=== PATIENT | male | born 1950 | race Caucasian/White ===

== ENCOUNTER 2024-02-22 10:05 | Observation (INO) ==
--- NOTE | 2024-01-25 10:28 | PAT Medication Instructions ---
Medication Instructions Date of Service January 25, 2024 Home Medications dorzolamide 2 % eye drops 1 drp ophthalmic (eye) BID lisinopril 10 mg tablet 10 mg PO QPM netarsudil 0.02 %-latanoprost 0.005 % eye drops (Rocklatan) 1 drp ophthalmic (eye) HS timolol 0.5 % eye drops 1 drp ophthalmic (eye) BID multivitamin 1 tab PO QAM prednisolone acetate (PF) 1 % eye drops,suspension 1 drp ophthalmic (eye) HS DO NOT take the morning of surgery multivitamin 1 tab PO QAM Take morning of surgery dorzolamide 2 % eye drops 1 drp ophthalmic (eye) BID timolol 0.5 % eye drops 1 drp ophthalmic (eye) BID Take evening before surgery dorzolamide 2 % eye drops 1 drp ophthalmic (eye) BID lisinopril 10 mg tablet 10 mg PO QPM netarsudil 0.02 %-latanoprost 0.005 % eye drops (Rocklatan) 1 drp ophthalmic (eye) HS timolol 0.5 % eye drops 1 drp ophthalmic (eye) BID prednisolone acetate (PF) 1 % eye drops,suspension 1 drp ophthalmic (eye) HS NOTHING TO EAT OR DRINK AFTER MIDNIGHT Other Notes If you have any questions please call us at [phone] or [phone] or [phone] or [phone]
--- NOTE | 2024-01-31 11:04 | Anesthesiology Consultation ---
Date of Service January 31, 2024 Assessment & Plan (1) Encounter for pre-operative examination: Chart Review Chart Review: Acceptable Risk for Surgery and Patient seen in Pre Admission Testing - Please send preop testing to PCP for continuity of care per patient request (Dr. Timothy Lutz [facility]) - Patient is NOT an ideal OPJ candidate Per PAT appt on 01/25/24, no recent illness/disease exposures, illness related sy mptoms, or recent illness/disease positive tests. Will leave to surgeon's discretion if preop Covid testing needed Teaching & Discussion Pre-Anesthesia Teaching/Discussion Notes: Instructed NPO after midnight before surgery,except medications with 15 cc of water. Medication instructions provided according to the PAT guidelines. History Surgery Operation Date: 02/22/24 12:30 Proposed Procedures p Right Total Knee Arthroplasty - Saji Kuo MD Height/Weight Height: 5 ft 10 in Weight: 85.5 kg Allergies Allergy/AdvReac Type Severity Reaction Status Date / Time No Known Allergies Allergy Verified 01/25/24 07:51 Medications Home Medications Medication Instructions Recorded Confirmed Last Taken dorzolamide 2 % eye drops 1 drp ophthalmic (eye) BID 01/24/24 01/25/24 Unknown lisinopril 10 mg tablet 10 mg PO QPM 01/24/24 01/25/24 Unknown netarsudil 0.02 %-latanoprost 1 drp ophthalmic (eye) HS 01/24/24 01/25/24 Unknown 0.005 % eye drops (Rocklatan) timolol 0.5 % eye drops 1 drp ophthalmic (eye) BID 01/24/24 01/25/24 Unknown multivitamin 1 tab PO QAM 01/25/24 01/25/24 Unknown prednisolone acetate (PF) 1 % eye 1 drp ophthalmic (eye) HS 01/25/24 01/25/24 Unknown drops,suspension Past Medical History Medical History (Updated 01/31/24 @ 11:02 by Eliza Tompkins PA-C) History of COVID-23 August 2023- no residual symptoms History of Mohs micrographic surgery for skin cancer x4 History of prostate cancer Dx 2011, s/p prostatectomy - no chemo or XRT Hx of basal cell carcinoma face, removed Hypertension Mild - takes blood pressure medication more for eyes (history of corneal transplant) Hypoglycemia History of No problems since the 1970s Right knee DJD Exercise / Class Metabolic Activity II 4-5 Yardwork/Stairs/Walk up hill (one flight of stairs - no chest pain or SOB ) Past Surgical History Surgical History Hx of arthroscopy of left knee x2 Hx of arthroscopy of right knee x2 Hx of arthroscopy of shoulder rt RCT repair Hx of colonoscopy Hx of cornea transplant 2014, bilat eyes, [facility] Hx of foot surgery rt>"major" sx following lawnmower accident Hx of knee surgery rt knee, reconstruction following fall in elevator shaft Hx of prostatectomy 2011, [facility], robotic assisted Past Anesthesia History No Hx of Anesthesia Complications and No Family Hx of Anesthesia Complications History of PONV No Hx of PONV and No Hx of Motion Sickness Social History Smoking Status: Never smoker Do You Dip or Chew Tobacco: No Hx Alcohol Use: No Hx Substance Use: No substance use type: does not use Review of Systems - Hx of mild snoring- no witnessed apnea- no hx of sleep study - Hx of blood transfusion in 1960s due to foot trauma Patient denies chest pain, shortness of breath, dyspnea on exertion, reflux, cough, wheezing, palpitations. No hx of seizures, stroke, [place]. No hx of blood clots Physical Exam Vital Signs VITALS BP 140/82 (manually) P 56 TEMP 97.5 SP02 100% RESP 16 Constitutional no acute distress ENMT Mouth: no TMJ clicking Thyromental Distance: > or= 3.5 Finger Breadths (3.5) Mallampati Class: I Veneers to top front tooth Crowns to the side teeth Neck + limited neck extension Respiratory normal respiratory effort; no respiratory distress Auscultation: lungs clear to auscultation bilaterally and + diminished lung sounds (mildly throughout); no wheezes Cardiovascular Rate/Rhythm: regular rate and regular rhythm Heart Sounds: no murmur Vessels: no carotid bruit Musculoskeletal Spine: no pain with cervical ROM Extremities: extremities normal to inspection Psychiatric Orientation: alert Lab Results Anesthesia Preop Results Results Anesthesia Widget: WBC 7.15 K/ul (4.8-10.8) 01/31/24 Hgb 14.0 g/dl (14.0-18.0) 01/31/24 Hct 40.4 % (42.0-52.0) L 01/31/24 Plt 217 K/uL (130-400) 01/31/24 Na 134 mmol/L (136-145) L 01/31/24 K 4.3 mmol/L (3.5-5.1) 01/31/24 Cl 101 mmol/L (98-107) 01/31/24 CO2 29 mmol/L (21-32) 01/31/24 BUN 17 mg/dl (6-23) 01/31/24 Creat 0.93 mg/dl (0.6-1.4) 01/31/24 Glucose Level 88 mg/dl (70-99(Fasting)) 01/31/24 PT 10.9 Seconds (9.0-12.0) 01/31/24 PTT 28 Seconds (21-31) 01/31/24 INR 1.0 (0.9-1.1) 01/31/24 Blood Type A Positive 01/31/24 Antibody Screen NEGATIVE 01/31/24 Testing Electrocardiogram Date: 01/31/24 Findings: + SB @ (58bpm) Otherwise normal EKG per cardio Chest X-Ray Date: 01/31/24 FINDINGS: PA and lateral chest radiographs are obtained. No prior studies are available for comparison at the time of dictation. The cardiomediastinal silhouette is unremarkable noting atherosclerotic calcification of the thoracic aorta. There is mild bibasilar scarring/atelectasis. The lungs and pleural spaces are otherwise clear. There is no pneumothorax. The skeletal structures are osteopenic. The bony thorax appears intact. Mild degenerative change is seen in the thoracic spine. Arthritic change is noted in the right shoulder. IMPRESSION: No active disease in the chest.
[~2024-02-22 10:05] MED LIST: BUPIVACAINE 0.5 % 5 MG/1 ML PF 10ML VIAL ONE; EPINEPHrine INJ 1 MG/ML AMP ONE; ROPIVACAINE 0.5% 5 MG/ML 30 ML VIAL ONE
--- NOTE | 2024-02-22 10:40 | History & Physical Bridge Note ---
Date of Service February 22, 2024 History & Physical Bridge Note I have examined the patient, reviewed the History & Physical and in the interval since the performance of the History & Physical I have noted the following changes of clinical significance: no changes noted
[2024-02-22] MEDS ORDERED: PROPOFOL IV EMULSION 10 MG/ML 20 ML VIAL IV ONE ×4 (11:17→14:33)
[2024-02-22] MEDS ORDERED: MIDAZOLAM HCL 1 MG/ML 2ML VIAL ONE (11:17)
[2024-02-22] MEDS: LR 60ML/HR IV SCH (11:34)
[2024-02-22] MEDS: LR 500ML BOLUS, THEN 15ML/HR IV SCH (11:54)
[2024-02-22] MEDS: ACETAMINOPHEN 500 MG TAB PO SCH ×2 (11:55→20:46)
[2024-02-22] MEDS: FAMOTIDINE 20 MG TAB PO SCH (11:56)
[2024-02-22] MEDS: CeleBREX 200 MG CAP PO SCH (11:56)
[2024-02-22] MEDS: METOCLOPRAMIDE HCL 10 MG TABLET PO SCH (11:56)
[2024-02-22] MEDS: dexAMETHasone**PF** 10 MG/ML VIAL IV SCH (12:00)
[2024-02-22] MEDS: ceFAZolin 2000MG 2,000 MG/15 ML SYR IV SCH ×2 (13:22→21:39)
[2024-02-22] MEDS: TRANEXAMIC ACID 1,000 MG **IV Intra-op IV SCH (14:03)
[2024-02-22] MEDS: ROPIV 0.5% 246mg, Ketorolac 30mg, EPINEPHrine 0.5mg in NSS INFIL SCH (14:09)
[2024-02-22] MEDS: ORTHO JOINT ANESTHETIC ONE (14:10)
--- NOTE | 2024-02-22 14:58 | Operative Report ---
PG Post Operative Report Pre & Post Diagnosis Operation Date: 02/22/24 12:30 Pre-Op Diagnosis: Right Knee Degenerative Joint Disease Post-Op Diagnosis: Right Knee Degenerative Joint Disease I identified the patient and participated in the time-out.: Yes Procedure Operation Date: 02/22/24 12:30 Actual Procedures p Right Total Knee Arthroplasty(Right) - Saji Kuo MD Surgeon Saji Kuo MD [employer] Rep Gio Stanley PA-C Estimated Blood Loss 50 Findings Consistent with Post-Op Diagnosis Operative findings reveal advanced right knee DJD. He had grade 4 [id number] disease in all 3 compartments. Not much in way eburnation but full-thickness cartilage loss in all 3 compartments. Moderate-sized joint effusion. Specimens Right knee sent for pathology. Anesthesia Type Spinal MAC Complications none Indications Patient is 74-year-old gentleman with a long history of right knee pain and discomfort. Is been through extensive conservative treatment and including 2 knee arthroscopies in the past. Over time is developed progressive increased pain discomfort unresponsive conservative treatment. X-rays revealed advanced right knee tricompartment DJD. He elected proceed with surgical treatment. Description of Procedure Operative implants consist of: 1. Biomet Vanguard size 67.5 right posterior stabilized femoral component. 2. Biomet size 79 tibial tray. 3. 10 mm posterior stabilized polyethylene insert. 4. 31 x 8 all poly patella. The patient was taken to the operating, identified, placed on the operating table in the supine position. All contact areas were appropriately padded. IV antibiotics 5 by anesthesia team. Spinal anesthetic and adductor canal block had been provided in the holding area. Right Tetrick was then placed. The right lower extremity was then prepped and draped in the usual sterile fashion. The right leg was elevated and exsanguinated with use of an Esmarch and a turn was placed at 300 mmHg. An anterior approach of the right knee was then performed through a longitudinal incision centered over the patella. Sharp dissection carried through subcutaneous tissue down the extensor mechanism. A medial parapatellar arthrotomy incision was made. Some subperiosteal dissection was carried out medially. The fat pad was resected from Neath patella tendon. The lateral patellofemoral ligament was released. Patella subluxated laterally and the knee was flexed. The osteophytes were taken off the distal femur. The ACL PCL were then released from the distal femur and the tibia subluxated anteriorly. The external treatment LYMErix then placed the interface the tibia and adjusted 14 mm medially. Proximal tibial cut was made to move out a millimeter bone from most deficient aspect medial tibial plateau. The tibia sized to a size 79. Attention drawn to the femur. The distal femur was entered with a sharp drill. Intramedullary canal was suction. A right 6 degree valgus cutting guide was placed. The distal femoral cutting block was pinned in place. Distal femoral cut was made take an additional 3 mm of bone off distal femur. The femur was then sized to a size 67.5. The AP cutting block was pinned parallel to the epicondylar axis which was 4 degrees of external rotation. The anterior cut, anterior chamfer, posterior cut, posterior chamfer cuts were made. The box cutting guide was placed in just slight lateral and the box cut was made. The knee was flexed. The remnants of the medial and lateral menisci were excised. The osteophyte taken off the posterior aspect the femur. A trial femoral component was placed for the tibial tray was pinned Kayleigh external rotation and the drill and stem punch used to create defect in proximal tibia for the tibial tray. Knee was then trialed and the 10 mm insert fit most appropriately. Attention drawn the patella. The patella was cleaned of all soft tissue. Patella thickness measured 24 mm in thickness was cut down to 15. Was sized to a size 31 patella. The lug holes were drilled for 31 patella. The lateral osteophytes removed. Patella button was placed. Knee was taken through range of motion and the patella tracked nicely with no thumbs test Attention drawn to placing the permanent components. All trial components were removed. Bone plug was placed in the distal femur limit blood loss. A double batch of Palacos G cement was mixed. Biomet Vanguard size 67.5 right posterior stabilized femoral component, a size 79 tibial tray, a 10 mm post stabilized polyethylene insert, and a 31 x 8 all poly patella then cemented in place. The knee was brought out into full extension till cement hardened. Final cement check was then performed. The pericapsular tissues were injected with total of 100 cc of orthopedic joint mix. The patient did receive 1 g tranexamic acid. The tourniquet was then let down for final tourniquet time 56 minutes. Hemostasis assured use electrocautery. Extensor Meclomen closed with combination 1 PDS suture #1 Vicryl suture [id number] fashion. Extensor Meclomen checked found to be intact with subcutaneous tissue then closed with 2 Dexon suture in buried knot fashion skin was closed skin vj. Leg was then cleaned and dried and sterile dressing with Xeroform, 4 fours, sterile cast padding, Wale bandage were applied. Patient then transferred to the recovery room in stable condition. The patient tolerated procedure well and there were no complications. Gio Stanley, my physician dental assistant medical assistant, was present for the entire procedure. His assistance was essential and required for appropriate patient positioning, prepp ing and draping, surgical exposure, performing the technical details of the operation, placement the implants, closure of the wound, and placement of the sterile bandage. I attest to the content of the Intraoperative Record and any orders documented therein. Any exceptions are noted below.
--- NOTE | 2024-02-22 15:11 | XRay Report ---
TWO VIEWS RIGHT KNEE CLINICAL HISTORY: Postoperative examination. FINDINGS: AP and crosstable lateral portable views of the right knee are obtained. A right knee arthr oplasty is in near anatomic alignment. There has been undersurface remodeling of the patella. No acut e fracture is seen. There are expected postoperative changes around the knee including skin clips, so ft tissue edema, and subcutaneous gas. IMPRESSION: Expected postoperative changes status post right knee arthroplasty. No acute fracture is seen. ACT 112: Negative or not required by law. Electronically signed by: Mark Clark M.D. 02/22/2024 3:09 PM
[2024-02-22] MEDS ORDERED: ALUMINUM/MAGNESIUM SUSP 30 ML UDC PO PRN (17:03)
[2024-02-22] MEDS ORDERED: MAGNESIUM HYDROXIDE SUSP 30 ML UDC PO PRN (17:03)
[2024-02-22] MEDS ORDERED: ONDANSETRON INJ 2 MG/ML 2 ML VIAL IV PRN (17:03)
[2024-02-22] MEDS ORDERED: HYDROmorphone INJ 0.5 MG/0.5 ML SYR IV PRN (17:03)
[2024-02-22] MEDS ORDERED: oxyCODONE HCL IR 5 MG TAB (IMMEDIATE RELEASE) PO PRN (17:03)
[2024-02-22] MEDS ORDERED: bisacodyL 10 MG SUPP PR PRN (17:03)
[2024-02-22] MEDS ORDERED: NALOXONE HCL 0.4 MG/1 ML VIAL/CARP IV PRN (17:03)
[2024-02-22] MEDS ORDERED: METOCLOPRAMIDE HCL INJ 5 MG/ML 2 ML VIAL IV PRN (17:03)
--- NOTE | 2024-02-22 17:12 | Anesthesiology Progress Note ---
Date of Service February 22, 2024 Anesthesia Post Procedure Vital Signs Vital Signs: Temp Pulse Resp BP Pulse Ox O2 Del Method O2 Flow Rate 02/22/24 16:25 65 12 133/78 94 Room Air 02/22/24 16:15 73 12 135/76 94 Room Air 02/22/24 16:05 71 12 128/74 94 Room Air 02/22/24 15:55 67 12 121/71 94 Room Air 02/22/24 15:45 64 20 129/68 93 Room Air 02/22/24 15:35 73 20 122/77 95 Room Air 02/22/24 15:25 36.5 C 63 20 122/66 94 Room Air 02/22/24 15:15 63 20 122/66 94 Room Air 02/22/24 15:05 62 15 121/64 95 Room Air 02/22/24 14:55 36 C L 70 14 116/60 99 Oxymask 6 02/22/24 11:25 36.6 C 63 18 160/90 H 98 Room Air Transfer of Care Handoff Completed per policy Notes Mental Status: alert / awake / arousable Patient Amnestic to Procedure: Yes Nausea / Vomiting: adequately controlled Pain: adequately controlled Airway Patency, RR, SpO2: stable & adequate BP & HR: stable & adequate Hydration State: stable & adequate Anesthetic Complications: no major complications apparent
[2024-02-22] MEDS: ASCORBIC ACID 500 MG TAB PO SCH (18:10)
[2024-02-22] MEDS: KETOROLAC TROMETHAMINE 15 MG/ML VIAL IV SCH (18:11)
[2024-02-22] MEDS: SODIUM CHLORIDE 0.9% 1,000 ML IV SCH (18:11)
[2024-02-22] MEDS: ASPIRIN 81 MG ECTAB PO SCH (20:46)
[2024-02-22] MEDS: lisinopril 10 MG TAB PO SCH (20:47)
[2024-02-22] MEDS: DOCUSATE SODIUM 100 MG CAP PO SCH (20:47)
[2024-02-22] MEDS: DORZOLAMIDE HCL 2% OPH SOLN 10 ML BTL OP SCH (20:47)
[2024-02-22] MEDS: SENNA 8.6 MG TAB PO SCH (20:48)
[2024-02-22] MEDS: TRANEXAMIC ACID / 0.7% NACL 1,000 MG/100 ML BAG IV SCH (20:48)
[2024-02-22] MEDS: prednisoLONE acetate 1% OP SUSP 5 ML BTL OP SCH (20:48)
[2024-02-22] MEDS: TIMOLOL MALEATE 0.5% OP SOLN 5 ML BTL OP SCH (20:48)
[2024-02-22] MEDS ORDERED: SENNA 8.6 MG TAB PO SCH (21:00)
[2024-02-23 07:16] LABS: Hemoglobin 11.6 g/dl (14.0-18.0); Mean Corpuscular Hgb Conc 36.3 g/dL (32.0-36.0); Mean Corpuscular Volume 88.4 fL (80.0-100.0); Platelet Count 216 K/uL (130-400); RDW Coefficient of Variation 11.9 % (11.5-14.5); Red Blood Count 3.62 M/uL (4.70-6.10); White Blood Count 16.38 K/ul (4.8-10.8)
--- NOTE | 2024-02-23 07:26 | Surgery Progress Note ---
Date of Service February 23, 2024 Assessment & Plan (1) Status post right knee replacement: Plan: 74-year-old gentleman postop day 1 from right knee replacement. He is doing reasonably well. Pain is controlled. He is neurologically intact. Plan: 1. DVT prophylaxis including thigh-high teds, SCDs, aspirin twice a day. 2. PT/OT. Weight-bear as tolerated right total knee protocol. 3. Pain control done okay with current pain regimen 4. Disposition. Plan planning and hoping to go home today. Admission and Anticipated Discharge Date Admission Date: February 22, 2024 Subjective 74-year-old gentleman postop day 1 from right knee replacement. He is doing pretty well. Pains been controlled. No chest pain or shortness of breath. Not feeling dizzy or lightheaded. Physical Exam Physical Exam: Physical examination is a pleasant middle-age male. Lying bed looks pretty comfortable this morning. Examination of the right leg reveals the dressing be clean dry and intact. He can dorsiflex and plantarflex his foot appropriately. Can do a straight leg raise but requires some effort. He is neurologically intact Respiratory: normal respiratory effort, lungs clear to auscultation Cardiovascular: RRR, no murmur, no edema Gastrointestinal (Abdomen): normal bowel sounds, soft, nontender, no hepatosplenomegaly Results & Data Vital Signs (Past 12 Hours) Vital Signs Temp Pulse Resp BP Pulse Ox O2 Del Method 02/23/24 03:30 36.4 C L 68 18 135/80 96 Room Air 02/22/24 23:00 36.6 C 61 18 155/79 H 95 Room Air 02/22/24 19:37 36.3 C L 67 18 149/85 H 97 Room Air Laboratory Results Hemoglobin 11.6. Hematocrit 32.0. Electrolytes are pending. PG Care Time/CCT Total # of Minutes Spent Total Time Spent with Patient: Total time spent is greater than 50% in coordination of care (as documented) at patient's floor/unit and/or counseling patient: Coding Level of Care Code 93982 Post Operative Follow-Up Diagnoses Status post right knee replacement Z96.651
[2024-02-23 07:39] LABS: BUN Creatinine Ratio 18.1 (10-20); Calcium 8.8 mg/dl (8.6-10.3); Creatinine Clr Calc Pharmacy 61.8 ml/min; Est GFR (African American) 79.5 ml/min; Est GFR (Non-African American) 68.6 ml/min; Potassium 3.9 mmol/L (3.5-5.1)
[2024-02-23] MEDS: TAMSULOSIN HCL 0.4 MG CAP PO SCH (08:43)
[2024-02-23] MEDS: MULTIVITAMIN TAB PO SCH (08:44)
[2024-02-23] MEDS: dexAMETHasone 10 MG in SYRINGE 0 ML IV SCH (08:45)
[2024-02-23] MEDS ORDERED: NON-FORMULARY MEDICATION (Multivitamin Tablet) PO SCH (09:00)
--- NOTE | 2024-02-25 13:27 | Discharge Summary ---
Date of Service February 25, 2024 Discharge Data Procedures Performed Operation Date: 02/22/24 12:30 Actual Procedures p Right Total Knee Arthroplasty(Right) - Saji Kuo MD Hospital Course (1) Status post right knee replacement: This is a 74 year old patient admitted on 02/22/24 and underwent total knee arthroplasty. He tolerated the procedure well and there were no complications. Transferred to the PACU post op and later to the orthopedic floor for further care. He was given ancef for antibiotic prophylaxis. He was also given JOSE stockings, SCDs, and aspirin for DVT prophylaxis. Hemoglobin, hematocrit, and vital signs were monitored during his hospital stay and remained stable. Did not require any blood transfusions. There were no complications during his hospital stay. By post op day #1 the patient was tolerating a regular diet, pain was reasonably controlled with oral pain medicine, and he was participating in physical therapy. On post op day #1 the patient was discharged home and set up with home health care. He was given printed discharge instructions including prescriptions for extra strength tylenol, aspirin, ketorolac, cefadroxil, zofran, oxycodone, senokot, and flomax. Continue physical therapy, weight bearing as tolerated. Continue JOSE stockings. Follow up approximately 2 weeks post op or sooner if there are problems or concerns. Coding Level of Care Code None Diagnoses Status post right knee replacement Z96.651
== END 2024-02-23 10:59 | disposition home health service (06) ==
LOC: ASU 10:05 → 3E 10:05
DX: I10 Essential (primary) hypertension; I25.10 Atherosclerotic heart disease of native coronary artery without angina pectoris; E78.5 Hyperlipidemia, unspecified; Z85.46 Personal history of malignant neoplasm of prostate; Z79.899 Other long term (current) drug therapy; M17.11 Unilateral primary osteoarthritis, right knee